=== PATIENT | male | born 1985 | race Caucasian/White ===

== ENCOUNTER 2019-05-14 17:50 | Emergency (ER) | payer MEDICAID, SELFPAY ==
[2019-05-14 17:58] VITALS: BP 160/95; PULSE 106; RESP 16; TEMP 36.6; O2SAT 97
--- NOTE | 2019-05-14 18:02 | W.ED.GENAD ---
Discharge Plan Disposition Patient Disposition: [facility] Condition: Stable Discharge Details Chief Complaint: Suicide-Atempt Clinical Impression: Depression, Suicidal ideation, Hypothyroidism Primary Care Provider: None,None ED Provider: Kurtis Ball Home Meds and New Rx's Prescriptions: No Action melatonin 3 mg Tablet 6 mg PO .QHS RF: 0 lamotrigine [Lamictal] 25 mg Tablet 25 mg PO DAILY RF: 0 Discharge Data Discharge Date/Time-TO BE ENTERED AT DEPARTURE: 05/15/19 12:30 Medical Decision Making <Nikhil Peterson, - Last Filed: 05/14/19 21:30> This is a 33-year-old male with past medical history of ADHD, thyroid disease, suicidal ideation since previous suicide attempts. He presents today for evaluation of of depression and suicidal ideations. Patient states that over the last week or so he has had increasingly dark thoughts, he is wanted to harm himself and end his life. He would do this by hanging himself. He states that he does occasionally hear voices, he is not currently taking his depression medicines that are prescribed. He denies any homicidal ideations. He denies any drug or alcohol use. He denies any other complaints at this time. Physical exam demonstrates a well-appearing male, demonstrates notable suicidal ideations. He is open to admission and transfer to psych facility. We will consult mental health, perform customary labs. Clinically he appears medically cleared from my perspective. We will get a CPS O and observation. 7:44 PM Patient's laboratory work-up is returned relatively unremarkable, TSH is high, and free T4 is slightly low, however not to the point of clinical myxedema coma. I do not feel that this is clinically significant of his current symptoms or etiology. I do feel that this can be managed but later on an outpatient setting. He shows no clinical evidence of need for IV levothyroxine. Mental health has seen and assessed the patient, they agree on the need for potential admission and the patient is still voluntary. We will seek for potential admission placement options. 9:29 PM Patient has been seen and assessed by mental health, they agree on the need for voluntary admission, unfortunately no excepting facilities available at this time. Rooms are notably limited upstairs, the patient is been very pleasant here in the ED, at this time we will continue to hold him here until tomorrow morning when a roommate potentially become available. The case has been discussed with care management and mental health and they both agree. Patient will be kept overnight here in the ED per standard protocol for mental health. Safety precautions are in place. Case will be signed out to my colleague Dr. Tejada for observation during the evening, and then the oncoming physician in the morning for potential disposition. <Jovanny Tejada MD - Last Filed: 05/19/19 20:14> Patient has been fine overnight without issues. [facility]. Signed out to [facility] day physician. <Kurtis Ball MD - Last Filed: 05/15/19 10:10> Pt has remained stable and cooperative during stay here. [facility], accepting provider is Dr. Vasquez. HPI <Nikhil Peterson DO - Last Filed: 05/14/19 21:30> General Date/Time Provider Initiated Documentation: 05/14/19 17:51. HPI Narrative: This is a 33-year-old male with past medical history of suicidal ideations, ADHD, thyroid disease,, previous suicide attempts in the past by hanging, borderline personality disorder, schizophrenia, who presents today from the [facility] organization for evaluation of suicidal thoughts and ideations. Patient has been at the [facility] facility for the past 6 weeks, however he is recently stopped his depression medications, and has a prescription for new meds but has not taken them over the past week. Over the last few days the patient states that his thoughts have become particularly dark. He is thought of ending his life multiple times, he would do this by suicide. He states that he often feels a dark terrifying presents, he occasionally hears voices. He states that he tremendously wants help, and would like assistance with his current feelings. He denies any homicidal ideations. He denies any IV or illicit drug use. He denies any recent alcohol use. He has no other complaints at this time. No other modifying factors. Related Data Home Medications Medication Instructions Recorded Confirmed lamotrigine [Lamictal] 25 mg PO DAILY 05/14/19 05/14/19 melatonin 6 mg PO .QHS 05/14/19 05/14/19 Allergies Allergy/AdvReac Type Severity Reaction Status Date / Time No Known Allergies Allergy Unverified 05/14/19 18:05 Review of Systems <Nikhil Peterson DO - Last Filed: 05/14/19 21:30> All systems reviewed & are unremarkable except as noted in HPI and below PFSH <Nikhil Peterson DO - Last Filed: 05/14/19 21:30> Social History Smoking/Tobacco Use Status: Never Alcohol Intake: former Substance use type: does not use Exam <Nikhil Peterson DO - Last Filed: 05/14/19 21:30> Narrative Exam Narrative: 1.Const: Well-nourished, Well-developed, appearing stated age 2.Eyes: PERRL, no conjunctival injection, and symmetrical lids. 3.ENT: Atraumatic external nose and ears. Moist MM. Neck: Symmetric, trachea midline, No thyromegaly. 4.CVS: +S1/S2, No murmurs or gallops. Peripheral pulses 2+ and equal in all extremities. Brisk capillary refill in all extremities. 5.RESP: Unlabored respiratory effort. Clear to auscultation bilaterally. No wheezes rales or rhonchi 6.GI: Soft, Nontender/Nondistended, No hepatosplenomegaly. No guarding or rebound. 7.MSK: Normocephalic/Atraumatic, Extremities w/o deformity or ttp No cyanosis or clubbing, Normal movement of all extremities 8.Skin: Warm, Dry. No rashes or lesions. 9.Neuro: coatings inspector II-XII grossly intact. Sensation grossly intact, no focal neurologic deficits. 10.Psych: (AAO) x3. Appropriate mood and affect Sign Out <Nikhil Peterson DO - Last Filed: 05/14/19 21:30> Sign Out Data: Sign Out Comment: Patient is suicidal with a plan. Standard safety protocols are in place. Patient was remained in the ED this evening, recommend reevaluation by mental health tomorrow morning for potential placement options. Currently the patient is voluntary. Last updated by Nikhil Peterson DO at 05/14/19 21:31 Sign Out Comment: Patient has been accepted to [facility] with plan transfer later this morning. Last updated by Jovanny Tejada MD at 05/15/19 07:48
--- NOTE | 2019-05-14 18:35 | NUR.NOTE ---
$936.00 and food stamp card and [employer] bank card in his wallet and sent with full service supervisor to safe. Nursing Note:
[2019-05-14 18:44] LABS: Abs Immature Grans 0.03 k/cumm (0.0-0.09); Absolute Eosinophil Count 0.21 k/cumm (0.0-0.7); Absolute Lymphocyte Count 3.74 k/cumm (1.2-3.4); Absolute Monocyte Count 0.92 k/cumm (0.11-0.7); Basophils % 0.4; Eosinophils % 1.9; HGB 15.2 g/dL (13.5-17.5); Immature Grans % 0.3; Lymphocytes % 33.2; Mean Corp. HGB Concentration 33.8 g/dL (32.0-36.0); Mean Corpuscular Hemoglobin 30.7 pg (27.0-33.0); Mean Corpuscular Volume 90.9 fL (80-95); Monocytes % 8.2; Platelet Count 288 x1000/uL (130-400); RBC 4.95 m/cumm (4.50-6.00); RBC Distribution Width 13.8 % (11.8-14.1); White Blood Cell Count 11.27 k/cumm (4.4-10.8)
[2019-05-14 18:46] LABS: Absolute Basophil Count 0.05 k/cumm (0.0-0.2); Absolute Neutrophil Count 6.31 k/cumm (1.2-6.7)
[2019-05-14 18:52] LABS: *AMPHETAMINES SCREEN URINE Negative (Negative); *BARBITURATES SCREEN URINE Negative (Negative); *BENZODIAZEPINES SCREEN URINE Negative (Negative); Cannabinoids THC Negative (Negative); Cocaine Screen,Urine Negative (Negative); METHADONE URINE SCREEN Negative (Negative); OPIATES URINE SCREEN Negative (Negative); Tricyclic Antidepressants Negative (Negative)
[2019-05-14 19:03] LABS: Salicylate < 2.8 mg/dL (2.8-20.0)
[2019-05-14 19:05] LABS: ALT 36 U/L (16-63); AST 15 U/L (15-37); Albumin 4.7 g/dL (3.4-5.0); Alkaline Phosphatase 105 U/L (46-116); Anion Gap 9.7 mmol/L (3-11); BUN 16 mg/dL (7-18); Bilirubin, Total 0.3 mg/dL (0.2-1.0); CO2 28.3 mmol/L (21.0-32.0); CREATININE 1.23 mg/dL (0.70-1.30); Calcium 9.2 mg/dL (8.5-10.1); Chloride 103 mmol/L (98-107); Glucose 91 mg/dL (70-100); Potassium 3.9 mmol/L (3.5-5.1); Sodium 141 mmol/L (136-145); TSH (W/Ref FT4) 13.64 uIU/mL (0.36-3.74); Total Protein 8.1 g/dL (6.4-8.2)
[2019-05-14 19:11] LABS: ETHANOL BLOOD 3.7 mg/dL (<3)
[2019-05-14 19:21] LABS: Acetaminophen < 2 ug/mL (10-30)
[2019-05-14 19:28] LABS: FREE T4 0.66 ng/dL (0.76-1.46)
--- NOTE | 2019-05-14 19:42 | PDOC.MHCN_ITS ---
Date of service: 05/14/19 Time of Service: 21:50 Mental Health Crisis Note Presenting Issue How did you arrive at the ED and why did you come: T was brought to the ER via a staff member from [facility]. He came due to reported SI with plan and hx of attemtps. Precipitating Factors T endorses SI as well as auditory hallucinations, depression and anxiety. He reported that the hallucinations are voices he understands and sometimes ones he knows. Disposition BEHAVIOR: At is cooperative and engaged in the process. He is not a behavior issue. EYE CONTACT: Eye contact is fair sometimes being distracted by possibly events in the ER. MOOD: His mood is depressed, and anxious. AFFECT: T's affect is flat and worried. APPETITE: At reported that his appetite has been poor. SLEEP(trouble falling/staying asleep: T reported that his sleep has also been poor. Plan T is seeking a voluntary placement in an inpatient facility at this time. There were no beds availble tonight. A huddle was had with Rupa Cohn, myself and Jessica via phone. T will stay in the ER tonight with [facility] staff and safety plan will be put in his chart. [facility] will be back in the am to re-evaluate. Provisional Diagnosis Depressive d.o. unspecified with SI plan and hx. Psychosis unspecified Signature Clinician's Name/Title: Cristina Hamilton MS Emergency Services Clinician, [facility]
--- NOTE | 2019-05-14 21:54 | CMPROGNOTE_ITS ---
Care Management Progress Note S/O: Robel lives at the [facility] in [facility]. Has been there for about 6 weeks and was doing well until he stopped taking his medications for depression. He does not have a PCP but has seen a counselor at [facility] who ordered new medications but Robel has not filled the prescriptions yet. States he has been having a lot of dark thoughts and just wants to . He plans to hang himself and does not feel safe to return home. Requesting inpatient psychiatric admission to get help. VOLUNTARY FOR INPATIENT PSYCHIATRIC STABILIZATION. Robel has been calm, cooperative and appropriate in all interactions since arriving at [facility]; he has demonstrated appropriate coping and communication skills, has articulated his needs and concerns and is fully engaged during staff interactions. Huddle Participants: [facility], Otilia, Recruitment Director, MICHA oRdríguez, MILLA Lopez, Dr. Peterson Time and Date: 05/14/19 22:00 Safety plan has been established with patient, and care team, to adhere to patient goals, identify restrictions based on behavioral status, address nut rition, and determine allowed personal belongings, tools for hygiene and personal care. Determine level of activity including ambulation, level of supervision, visitors, and determine privileges based on behaviors and level of engagement by pt. SAFETY PLAN: ED Room #5 TS 05/14/19 22:00 1. Will remain on suicide precautions and in paper clothes. 2. Will remain in room under direct supervision of one-on-one staff at all times provided by [facility], MIKE, UNDERWRITING SUPPORT MANAGER chicken vaccinator. 3. May have paper cups, plates, finger foods as well as a safety spoon with which to eat meals. 4. Follow [facility] Management of the Admitted Behavioral Health Patient policy. 5. Comfort bath system only. 6. No personal belongings 7. May use phone to contact application support consultant at [facility] and [facility]. No hydraulic oil tool operator in the room. 8. No visitors tonight 9. Staff escort to bathroom 10. Nursing Graduate Research Assistant to coordinate any decision for change in location to the M/S Transition Bed based on staffing and bed availability. TV Privileges/Remote privileges if moved to the Transition Bed. 11. May use the wireless music player and headphones. 12. Voluntary Status. [facility] Flight Engineer must be contacted to evaluate again if he would like to leave prior to exiting the building. [facility] QMHP/Flight Engineer will be coordinating placement at inpatient facility, last updates included the following: * Beds may be available at [facility], [facility] and [facility] tomorrow. Referrals have been made. Patient is currently voluntarily at [facility] and seeking inpatient admission when a bed becomes available. [facility] Frontline Flight Engineer will continue seeking placement. Please contact the Certified Appliance Service Technician Chick Room Supervisor ([phone]) and [facility] Flight Engineer ([phone]) for any needed changes in the Safety Plan. Safety plan has been provided to interdepartmental care team including Clinical Coordinator , Nursing Graduate Research Assistant.
--- NOTE | 2019-05-14 21:54 | PDOC.ERCMPRO ---
Care Management Progress Note S/O: Robel lives at the [facility] in [facility]. Has been there for about 6 weeks and was doing well until he stopped taking his medications for depression. He does not have a PCP but has seen a counselor at [facility] who ordered new medications but Robel has not filled the prescriptions yet. States he has been having a lot of dark thoughts and just wants to . He plans to hang himself and does not feel safe to return home. Requesting inpatient psychiatric admission to get help. VOLUNTARY FOR INPATIENT PSYCHIATRIC STABILIZATION. Robel has been calm, cooperative and appropriate in all interactions since arriving at [facility]; he has demonstrated appropriate coping and communication skills, has articulated his needs and concerns and is fully engaged during staff interactions. Huddle Participants: [facility], Otilia, Processing Talc And Borate Supervisor, MICHA Rodríguez, MILLA Lopez, Dr. Peterson Time and Date: 05/14/19 22:00 Safety plan has been established with patient, and care team, to adhere to patient goals, identify restrictions based on behavioral status, address nutrition, and determine allowed personal belongings, tools for hygiene and personal care. Determine level of activity including ambulation, level of supervision, visitors, and determine privileges based on behaviors and level of engagement by pt. SAFETY PLAN: ED Room #5 TS 05/14/19 22:00 1. Will remain on suicide precautions and in paper clothes. 2. Will remain in room under direct supervision of one-on-one staff at all times provided by [facility], MIKE, [employer] SUPER[employer]ENT [employer]S supervisor bakery sanitation. 3. May have paper cups, plates, finger foods as well as a safety spoon with which to eat meals. 4. Follow [facility] Management of the Admitted Behavioral Health Patient policy. 5. Comfort bath system only. 6. No personal belongings 7. May use phone to contact systems support engineer at [facility] and [facility]. No strand forming machine operator in the room. 8. No visitors tonight 9. Staff escort to bathroom 10. Nursing Adjunct Lecturer to coordinate any decision for change in location to the M/S Transition Bed based on staffing and bed availability. TV Privileges/Remote privileges if moved to the Transition Bed. 11. May use the wireless music player and headphones. 12. Voluntary Status. [facility] Excavator Operator must be contacted to evaluate again if he would like to leave prior to exiting the building. [facility] QMHP/Excavator Operator will be coordinating placement at inpatient facility, last updates included the following: Beds may be available at [facility], [facility] and [facility] tomorrow. Referrals have been made. Patient is currently voluntarily at [facility] and seeking inpatient admission when a bed becomes available. [facility] Frontline Excavator Operator will continue seeking placement. Please contact the Unified Communications Engineer White Lead Filterer ([phone]) and [facility] Excavator Operator ([phone]) for any needed changes in the Safety Plan. Safety plan has been provided to interdepartmental care team including Clinical Coordinator , Nursing Adjunct Lecturer.
--- NOTE | 2019-05-14 23:11 | CMSP_ITS ---
Care Management Safety Plan Safety plan has been established with patient, and care team, to adhere to patient goals, identify restrictions based on behavioral status, address nutrition, and determine allowed personal belongings, tools for hygiene and personal care. Determine level of activity including ambulation, level of supervision, visitors, and determine privileges based on behaviors and level of engagement by pt. SAFETY PLAN: ED Room #5 TS 05/14/19 22:00 1. Will remain on suicide precautions and in paper clothes. 2. Will remain in room under direct supervision of one-on-one staff at all times provided by [facility], MIKE, MULTIFOCAL BUTTON GENERATOR business attorney. 3. May have paper cups, plates, finger foods as well as a safety spoon with whic h to eat meals. 4. Follow [facility] Management of the Admitted Behavioral Health Patient policy. 5. Comfort bath system only. 6. No personal belongings 7. May use phone to cotact business support at [facility] and [facility]. No machinery repair maintenance supervisor in the room. 8. No visitors tonight 9. Staff escort to bathroom 10. Nursing Railroad Design Consultant to coordinate any decision for change in location to the M/S Transition Bed based on staffing and bed availability. TV Privileges/Remote privileges if moved to the Transition Bed. 11. May use the wireless music player and headphones. 12. Voluntary Status. [facility] Recruitment Intern must be contacted to evaluate again if he would like to leave prior to exiting ` the building. [facility] QMHP/Recruitment Intern will be coordinating placement at inpatient facility, last updates included the following: * Beds may be available at [facility], [facility] and [facility] tomorrow. Referrals have been made. Patient is currently voluntarily at [facility] and seeking inpatient admission when a bed becomes available. [facility] Frontline Recruitment Intern will continue seeking placement. Please contact the Track Repair Person Critical Care Registered Nurse ([phone]) and [facility] Recruitment Intern ([phone]) for any needed changes in the Safety Plan. Safety plan has been provided to interdepartmental care team including Clinical Coordinator , Nursing Railroad Design Consultant.
--- NOTE | 2019-05-14 23:11 | PDOC.CMSAFED ---
Care Management Safety Plan Safety plan has been established with patient, and care team, to adhere to patient goals, identify restrictions based on behavioral status, address nutrition, and determine allowed personal belongings, tools for hygiene and personal care. Determine level of activity including ambulation, level of supervision, visitors, and determine privileges based on behaviors and level of engagement by pt. SAFETY PLAN: ED Room #5 TS 05/14/19 22:00 1. Will remain on suicide precautions and in paper clothes. 2. Will remain in room under direct supervision of one-on-one staff at all times provided by [facility], MIKE, DRAG SEINER positive printer operator. 3. May have paper cups, plates, finger foods as well as a safety spoon with which to eat meals. 4. Follow [facility] Management of the Admitted Behavioral Health Patient policy. 5. Comfort bath system only. 6. No personal belongings 7. May use phone to cotact customer support engineer at [facility] and [facility]. No autoclave operator in the room. 8. No visitors tonight 9. Staff escort to bathroom 10. Nursing Tow Truck Driver to coordinate any decision for change in location to the M/S Transition Bed based on staffing and bed availability. TV Privileges/Remote privileges if moved to the Transition Bed. 11. May use the wireless music player and headphones. 12. Voluntary Status. [facility] Merry Go Round Operator must be contacted to evaluate again if he would like to leave prior to exiting ` the building. [facility] QMHP/Merry Go Round Operator will be coordinating placement at inpatient facility, last updates included the following: Beds may be available at [facility], [facility] and [facility] tomorrow. Referrals have been made. Patient is currently voluntarily at [facility] and seeking inpatient admission when a bed becomes available. [facility] Frontline Merry Go Round Operator will continue seeking placement. Please contact the Manager Automotive Frame Stripper ([phone]) and [facility] Merry Go Round Operator ([phone]) for any needed changes in the Safety Plan. Safety plan has been provided to interdepartmental care team including Clinical Coordinator , Nursing Tow Truck Driver.
[2019-05-15 07:37] VITALS: BP 140/87; PULSE 67; RESP 18; TEMP 36.1; O2SAT 96
--- NOTE | 2019-05-15 12:52 | CMPROGNOTE_ITS ---
- If Service Date Differs Date of service: 05/15/19 Time of Service: 12:52 Care Management Progress Note S/O: Darío is being discharged from the Emergency Department to [facility]. Darío will be transported via [facility]. CM reviewed contents of safe envelope with Darío and returned all of his belongings. Darío signed for his belongings and CM placed the signature page with his ED chart. Darío was appropriate and engaged at time of encounter he is agreeable to transfer to [facility] and understands the plan. Mental Health was present at time of transfer and also reviewed the plan with Darío. P: Darío's belongings where returned to him, and he was discharged from the Emergency Department to via transverse abdominal muscle surgeon transport.
--- NOTE | 2019-05-18 14:22 | NUR.NOTE ---
Nursing Note: Maurilio Dumont, Tricia Morel; called asking for the disposition of the patient. He is on the HIPPA form and was told that he was transferred to [facility]. Lidia Maher.
== END 2019-05-15 12:30 | disposition short-term general hospital (02) ==
PROVIDERS: Student in an Organized Health Care Education/Training Program; Emergency Provider Emergency Medicine
DX: F32.9 Major depressive disorder, single episode, unspecified (principal); R45.851 Suicidal ideations
CPT/HCPCS: 36415; 80053; 80307; 99285; 80320; 80329; 84439; 84443; 85025; 99284